=== PATIENT | female | born 1955 | race Caucasian/White ===

== ENCOUNTER 2016-07-12 22:14 | Emergency (ER) | payer MEDICARE, OTHER | END 2016-07-13 01:55 | disposition short-term general hospital (02) | LOC: ER 22:14 | DX: R00.1 Bradycardia, unspecified (principal); R07.2 Precordial pain; E78.5 Hyperlipidemia, unspecified; F32.9 Major depressive disorder, single episode, unspecified; Z90.49 Acquired absence of other specified parts of digestive tract; Z90.89 Acquired absence of other organs; Z90.710 Acquired absence of both cervix and uterus; Z79.899 Other long term (current) drug therapy; Z88.8 Allergy status to other drugs, medicaments and biological substances; Z88.5 Allergy status to narcotic agent; Z88.0 Allergy status to penicillin | CPT/HCPCS: 36415; 96374 ==